=== PATIENT | male | born 1990 | race Caucasian/White ===

== ENCOUNTER 2022-01-22 22:00 | Emergency (ER) | payer BC, SELFPAY ==
[2022-01-22 22:01] VITALS: BP 165/89; PULSE 101; RESP 16; TEMP 36.6; O2SAT 98; BMI 27.1
[2022-01-22 22:06] VITALS: BP 168/59; PULSE 104; RESP 15; O2SAT 98
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
--- NOTE | 2022-01-22 22:15 | EKG12_ITS ---
Test Reason : DYSRHYTHMIA Blood Pressure : / mmHG Vent. Rate : 093 BPM Atrial Rate : 093 BPM P-R Int : 158 ms QRS Dur : 086 ms QT Int : 338 ms P-R-T Axes : 059 042 056 degrees QTc Int : 420 ms Normal sinus rhythm Normal ECG Confirmed by SARAH CUNNINGHAM, KORIN ([id number]), slot editor BANDAR OWEN ([id number]) on 01/24/2022 9:04:39 AM Referred By: ROMA Confirmed By:KORIN SMITH MD
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
[2022-01-22 22:42] LABS: Absolute Neutrophil Count 8.3 X10^3/uL (2.0-7.7); Basophil# 0.04 X10^3/uL; Basophil% 0.3 % (0-1); Eosinophil# 0.16 X10^3/uL; Eosinophils% 1.4 % (0-5); Hematocrit 42.5 % (40-54); Hemoglobin 14.1 g/dL (13.0-16.5); Lymphocyte % 17.1 % (19-41); Mean Corp Hgb Conc 33.2 g/dL (32-36); Mean Corpuscular Hgb 29.5 pg (27.0-32.0); Mean Corpuscular Volume 88.9 fL (80-94); Mean Platelet Vol. 9.3 fl (6.2-12.0); Monocyte# 1.09 X10^3/uL; Monocyte% 9.3 % (0-10); NRBC Flagged by Analyzer 0 % (0-5); Neutrophil # 8.32 X10^3/uL (2.7-7.7); Platelet Count 238 K/mm3 (150-450); RBC Distribution Width CV 13.2 % (11.6-14.6); RBC Distribution Width SD 42.9 fl (35.1-43.9); Red Blood Count 4.78 M/mm3 (4.6-6.2); White Blood Count 11.7 K/mm3 (4.4-11.0)
[2022-01-22 22:55] LABS: ALB/GLOB Ratio 1.1 RATIO (0.9-2.4); AST(SGOT) 49 U/L (15-37); Alanine Aminotransfer ALT/SGPT 46 U/L (16-61); Albumin, Serum 3.7 g/dL (3.2-5.0); Alkaline Phosphatase 68 U/L (45-117); Anion Gap 7 (5-15); BUN 12 mg/dL (7-18); BUN/Creat Ratio 10.7 RATIO (10-20); Calcium,Total 8.4 mg/dL (8.5-10.1); Chloride 111 mmol/L (98-107); Creatinine, Serum 1.12 mg/dL (0.70-1.30); EST Glomerular Filtration Rate 82 mL/min (>60); Est Glom Filt Rate - Afr Amer 99 mL/min (>60); Estimated Creatinine Clearance 105.85 ml/min; Globulin 3.3 g/dL (2.2-4.2); Glucose 138 mg/dL (74-106); Potassium 3.7 mmol/L (3.5-5.1); Sodium Level 143 mmol/L (136-145); Troponin-I HS 6 pg/mL (3.0-78.0)
[2022-01-22] MEDS: 0.9% Normal Saline 1,000 ML 999 ML IV (23:24)
[2022-01-22] MEDS: fentaNYL 100 MCG/2 ML Ampul 50 MCG IV (23:25)
[2022-01-22] MEDS: Diphth,Pertuss(Acell),Tet Vac 0.5 ML Vial IM (23:26)
[2022-01-22] MEDS: Lidocaine 1% (20 ml mdv) 20 ML Vial INFILT (23:28)
[2022-01-22] MEDS: HYDROcodone Bitartrate/Apap 5/325 Tablet PO (23:57)
[2022-01-23] VITALS: BP 145/78; PULSE 93; RESP 18; O2SAT 98
[2022-01-23] MEDS: Ketorolac 30 MG/ML Syringe IV (00:18)
[2022-01-23] MEDS: Cefazolin 1 GM/50 ML BAG IV (00:39)
[2022-01-23 02:00] VITALS: RESP 17
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
[2022-01-23 03:05] VITALS: BP 151/59; PULSE 92; RESP 15; O2SAT 97
[2022-01-23] MEDS: HYDROcodone Bitartrate/Apap 5/325 Tablet PO (03:24)
== END 2022-01-23 03:32 | disposition home or self-care (01) ==
PROVIDERS: Emergency Provider Emergency Medicine; PCP Preventive Medicine Occupational Medicine; Visit Provider Emergency Medicine
DX: S02.2XXA Fracture of nasal bones, initial encounter for closed fracture (principal); S22.32XA Fracture of one rib, left side, initial encounter for closed fracture; S39.012A Strain of muscle, fascia and tendon of lower back, initial encounter; S01.511A Laceration without foreign body of lip, initial encounter; S61.411A Laceration without foreign body of right hand, initial encounter; S01.21XA Laceration without foreign body of nose, initial encounter; V49.40XA Driver injured in collision with unspecified motor vehicles in traffic accident, initial encounter; V48.0XXA Car driver injured in noncollision transport accident in nontraffic accident, initial encounter; Y93.89 Activity, other specified; Y99.8 Other external cause status; Y92.410 Unspecified street and highway as the place of occurrence of the external cause; Z87.891 Personal history of nicotine dependence
CPT/HCPCS: 12002; 12015; 70450; 70486; 71045; 71260; 72125; 74177; 80053; 82077; 84484; 85025; 90715; 93005; 96361; 96365; 96375; 99285; J7050; Q9967; A4216

== ENCOUNTER 2023-05-02 18:34 | Emergency (ER) | payer BC, SELFPAY ==
[2023-05-02 18:34] VITALS: BP 160/88; PULSE 90; RESP 18; TEMP 36.1; O2SAT 98; BMI 32.4
[2023-05-02 19:05] VITALS: O2SAT 99
--- NOTE | 2023-05-02 19:10 | EDS_ITS ---
HPI History of Present Illness Chief Complaint: Chest Pain Informant: patient Narrative Narrative: Patient presents with extreme high blood pressure and chest pain. Patient states that all day he just has not been feeling right. He has pain over near his left clavicle. Sometimes he feels short of breath. However, he states he has asthma and he feels short of breath sometimes anyway. Sometimes he feels nauseated but he is never vomited. It does hurt to move. He does do a lot of lifting and motion at work but nothing that specifically injured him. No recent significant trauma or falls. No travel surgery immobilization personal or family history of DVT or PE. No family history of heart disease. He is not a smoker. He does have high blood pressure and takes 10 mg of lisinopril on occasion. No cholesterol or diabetes. He was not feeling right. He took his blood pressure and it was 144/100. He took 10 mg of lisinopril. He was concerned with his symptoms and the extreme high blood pressure so he came in. No tearing or ripping pain. No pain down his back. The pain does not migrate nor PFSH PFSH Medical History Asthma Former smoker Home Medications cephalexin 500 mg capsule 500 mg PO TID #21 CAPSULES 01/23/22 [Rx Last Taken Unknown] hydrocodone-acetaminophen 5-325mg 5mg-325mg 1 tab PO Q4H PRN Pain 3 days #18 TABLETS 01/23/22 [Rx Last Taken Unknown] Allergy/AdvReac Type Severity Reaction Status Date / Time bee venom protein (honey bee) Allergy Swelling Verified 05/02/23 18:35 Social History Smoking Status: Former smoker ROS ROS ED ROS Narrative A complete review of systems was performed and is negative except as documented in the history of present illness. Some specific details below. Constitutional: No recent fevers or chills. No malaise EYE: No discharge ENT: No difficulty swallowing. No swelling. No pain. No reflux symptoms. No GERD symptoms. CV: See history of present illness. Respiratory: See history of present illness. GI: No abdominal pain. No vomiting diarrhea. No blood in stool. Occasionally he feels nauseated but not now. : No frequency dysuria or hematuria. Musculoskeletal: No recent trauma. He has some pain around the left clavicle and upper chest area but no known injury. No radiation of pain. Skin: No rash. Nondiaphoretic. Neuro: No weakness or numbness. No radiation of pain down his arms numbness tingling or weakness. Endocrine: No polyuria or polydipsia. Constitutional Constitutional ED: Denies chills EXAM Physical Exam Narrative Exam Narrative: CONSTITUTIONAL: Patient is nontoxic in appearance. The patient looks comfortable. Work of breathing looks normal. He is sitting with an ice pack on his head. He states this just makes him feel cooler and so he feels overall better. He does not actually have a headache or facial pain. HEENT: No notable trauma. Mucous membranes moist. No sinus tenderness. No indication of pain with swallowing. EYES: No conjunctival injection. No proptosis. NECK:No JVD. No stridor. CARDIOVASCULAR: Regular rate. Regular rhythm. No notable murmur. No JVD. RESPIRATORY: No respiratory distress. Breathing is unlabored. No wheezes. No rhonchi. No rales. No pain with a deep breath. He does have some tenderness to the left side of his chest and upper chest and just above the clavicle. These are the areas where he is having pain. But there are no skin changes. No subcu air. No swelling. No mass felt. GASTROINTESTINAL: Not distended. Bowel sounds are normal. No tenderness. No guarding. No rebound. No palpable mass. No bruit is heard. GENITOURINARY: No tenderness over the bladder. No CVA tenderness. MUSCULOSKELETAL: Atraumatic. No peripheral edema. No cord. No tenderness along the deep venous system. No asymmetry. No distended veins. Normal distal pulses x4. NEUROLOGICAL: Patient is alert and appropriate. No focal deficit noted. SKIN: No noted rashes. No diaphoresis. PSYCHIATRIC: Patient is calm. Mood is appropriate. Const Vital Signs: 05/02/23 18:34 05/02/23 19:05 05/02/23 19:33 Temperature 97 F L Temperature Source Temporal Pulse Rate 90 Respiratory Rate 18 Respiratory Effort Normal Non-Labored Blood Pressure 160/88 H Blood Pressure Mean 112 Pulse Ox 98 99 Oxygen Delivery Method Room Air Room Air 05/02/23 19:34 Temperature Temperature Source Pulse Rate 60 Respiratory Rate 14 Respiratory Effort Blood Pressure Blood Pressure Mean Pulse Ox 98 Oxygen Delivery Method Room Air MDM MDM MDM Narrative Medical decision making narrative: My independent interpretation of the patient's single view chest x-ray shows slight rotation. No pneumothorax. No enlarged mediastinum. No effusion or infiltrate. Overall normal film. Final reading is pending. Patient CBC shows no marked abnormalities. Patient's electrolytes show no abnormalities Patient's troponin is normal at 4. This is after having symptoms off and on all day. I do not think we need a delta/repeat. Final reading of his chest x-ray shows no acute process. Patient does have some reproducible symptoms. His blood pressure is up a little bit today but I do not think that needs acute treatment. I have no indication clinically that this is dissection. I do not think he needs a CTA of the chest. He is PERC negative. I think Tylenol rest ice or nonsteroidals are appropriate. If he gets worsening pain dyspnea fevers migration or other concerns he should return. Lab Data Attestation: I reviewed the patient's lab results. Labs: Laboratory Results - last 24 hr 05/02/23 19:16 WBC 7.2 RBC 5.14 Hgb 15.2 Hct 45.2 MCV 87.9 MCH 29.6 MCHC 33.6 RDW Std Deviation 41.0 RDW Coeff of [place]re[place] 12.8 Plt Count 231 MPV 9.7 Immature Gran % (Auto) 0.100 Neut % (Auto) 59.9 Lymph % (Auto) 29.0 [place] % (Auto) 8.5 Eos % (Auto) 1.8 Baso % (Auto) 0.7 Absolute Neuts (auto) 4.3 Absolute Lymphs (auto) 2.09 Nucleated RBC % 0 Sodium 139 Potassium 3.6 Chloride 107 Carbon Dioxide 26.0 Anion Gap 6 BUN 13 Creatinine 0.96 Estim Creat Clear Calc 122.37 Est GFR (MDRD) Af Amer 118 Est GFR (MDRD) Non-Af 97 BUN/Creatinine Ratio 13.6 Glucose 90 Calcium 9.0 Troponin I High Sens 4 Radiography Diagnostic Testing: Clinical Impression(s) from Imaging Studies Chest X-Ray 05/02/23 19:25 IMPRESSION: No radiographic evidence of acute cardiopulmonary disease. Electronically Signed: Long Gore MD at 19:47 EDT , EKG Initial EKG: Comments: My independent interpretation the patient's EKG Discharge Plan Triage Chief Complaint: Chest Pain ED Provider: Misael Quiroga Dx/Rx/DC Orders Clinical Impression: Left-sided chest pain, History of hypertension Instructions: ED Chest Pain, Uncertain Cause Prescriptions: No Action hydrocodone-acetaminophen [hydrocodone-acetaminophen] 1 TABLET tablet 1 tab PO Q4H PRN (Reason: Pain) 3 Days Qty: 18 0RF cephalexin [cephalexin] 500 MG capsule 500 mg PO TID Qty: 21 0RF Primary Care Provider: Ji Joyner Referrals: Ji Joyner DO [Primary Care Provider] - 1-2 Days if not improving Disposition Disposition: Home, Self Care
--- NOTE | 2023-05-02 19:15 | EKG12_ITS ---
Test Reason : CP Blood Pressure : / mmHG Vent. Rate : 069 BPM Atrial Rate : 069 BPM P-R Int : 156 ms QRS Dur : 098 ms QT Int : 390 ms P-R-T Axes : 044 025 047 degrees QTc Int : 417 ms Normal sinus rhythm Normal ECG Confirmed by KASEY CUNNINGHAM, BOBO ([id number]), editorial intern BANDAR OWEN ([id number]) on 05/05/2023 1:11:05 PM Referred By: Confirmed By:BOBO PARKS MD
[2023-05-02 19:22] LABS: Absolute Lymphocyte Count 2.09 X10^3/uL (0.83-4.51); Absolute Neutrophil Count 4.3 X10^3/uL (2.0-7.7); Basophil# 0.05 X10^3/uL; Basophil% 0.7 % (0-1); Eosinophil# 0.13 X10^3/uL; Eosinophils% 1.8 % (0-5); Hematocrit 45.2 % (40-54); Hemoglobin 15.2 g/dL (13.0-16.5); Lymphocyte # 2.09 X10^3/ul (0.83-4.51); Mean Corp Hgb Conc 33.6 g/dL (32-36); Mean Corpuscular Hgb 29.6 pg (27.0-32.0); Mean Corpuscular Volume 87.9 fL (80-94); Mean Platelet Vol. 9.7 fl (6.2-12.0); Monocyte# 0.61 X10^3/uL; Monocyte% 8.5 % (0-10); NRBC Flagged by Analyzer 0 % (0-5); Neutrophil # 4.31 X10^3/uL (2.7-7.7); Neutrophil % 59.9 % (47-70); Platelet Count 231 K/mm3 (150-450); RBC Distribution Width CV 12.8 % (11.6-14.6); Red Blood Count 5.14 M/mm3 (4.6-6.2); White Blood Count 7.2 K/mm3 (4.4-11.0)
--- NOTE | 2023-05-02 19:25 | RAD_ITS ---
EXAM: XR CHEST, 1 VIEW CLINICAL INDICATION: chest pain TECHNIQUE: Frontal view of the chest. COMPARISON: 01/23/2022 FINDINGS: LUNGS AND PLEURAL SPACES: Unremarkable. No consolidation or edema. No pneumothorax. No effusion. HEART: Unremarkable. Cardiac silhouette not enlarged. MEDIASTINUM: Central airways and mediastinal contour are unremarkable. BONES/JOINTS: Unremarkable. SOFT TISSUES: Unremarkable. RAD/Chest 1 View (Portable) IMPRESSION: No radiographic evidence of acute cardiopulmonary disease. Electronically Signed: Long Gore MD at 19:47 EDT ,
[2023-05-02 19:34] VITALS: PULSE 60; RESP 14; O2SAT 98
[2023-05-02 19:40] LABS: Anion Gap 6 (5-15); BUN 13 mg/dL (7-18); BUN/Creat Ratio 13.6 RATIO (10-20); Chloride 107 mmol/L (98-107); Creatinine, Serum 0.96 mg/dL (0.70-1.30); EST Glomerular Filtration Rate 97 mL/min (>60); Est Glom Filt Rate - Afr Amer 118 mL/min (>60); Estimated Creatinine Clearance 122.37 ml/min; Glucose 90 mg/dL (74-106); Potassium 3.6 mmol/L (3.5-5.1); Sodium Level 139 mmol/L (136-145); Troponin-I HS 4 pg/mL (3.0-78.0)
[2023-05-02 20:00] VITALS: PULSE 60
[2023-05-02 20:13] VITALS: BP 142/84; PULSE 61; RESP 17; O2SAT 99
== END 2023-05-02 20:30 | disposition home or self-care (01) ==
PROVIDERS: Emergency Provider Emergency Medicine; PCP Preventive Medicine Occupational Medicine; Visit Provider Emergency Medicine
DX: R07.9 Chest pain, unspecified (principal); I10 Essential (primary) hypertension; Z79.899 Other long term (current) drug therapy; Z87.891 Personal history of nicotine dependence
CPT/HCPCS: 71045; 80048; 84484; 85025; 93005; 99284; A4216